=== PATIENT | male | born 1960 | race Caucasian/White ===

== ENCOUNTER 2019-02-28 07:23 | Emergency (ER) | payer OTHER ==
[~2019-02-28] VITALS: Ht 177.8 cm; Wt 108.0 kg
[2019-02-28] MEDS ORDERED: ONDANSETRON 4 MG (ZOFRAN) ORAL DISSOLVE TAB PO STA (07:29)
[2019-02-28] MEDS ORDERED: MECLIZINE 25 MG (ANTIVERT) TAB PO ONE (07:30)
--- OUTSIDE RECORDS SUMMARY | 2019-02-28 07:32 | XMS REPORT | Continuity of Care Document ---
Author Organization Unknown Address Unknown Phone Unavailable Allergies There is no data. Medications There is no data. Problems There is no data. Procedures There is no data. Results Test Result Range MICROALBUMIN/CREATININE RATIO, URINE - 01/17/19 08:48 CREATININE, RANDOM URINE 154 mg/dL 20-320 MICROALBUMIN 3.9 mg/dL See Note: MICROALBUMIN/CREATININE RATIO, RANDOM URINE 25 mcg/mg creat <30 CMP - 01/17/19 08:48 GLUCOSE 156 mg/dL 65-99 UREA NITROGEN (BUN) 17 mg/dL 7-25 CREATININE 1.13 mg/dL 0.70-1.33 eGFR NON-AFR. MOLDOVAN 71 mL/min/1.73m2 > OR=60 eGFR 83 mL/min/1.73m2 > OR=60 BUN/CREATININE RATIO NOT APPLICABLE (calc) 6-22 SODIUM 138 mmol/L 135-146 POTASSIUM 4.5 mmol/L 3.5-5.3 CHLORIDE 105 mmol/L 98-110 CARBON DIOXIDE 23 mmol/L 20-32 CALCIUM 9.5 mg/dL 8.6-10.3 PROTEIN, TOTAL 7.0 g/dL 6.1-8.1 ALBUMIN 4.4 g/dL 3.6-5.1 GLOBULIN 2.6 g/dL (calc) 1.9-3.7 ALBUMIN/GLOBULIN RATIO 1.7 (calc) 1.0-2.5 BILIRUBIN, TOTAL 0.5 mg/dL 0.2-1.2 ALKALINE PHOSPHATASE 55 U/L 40-115 AST 28 U/L 10-35 ALT 38 U/L 9-46 CBC - 01/17/19 08:48 WHITE BLOOD CELL COUNT 9.5 Thousand/uL 3.8-10.8 RED BLOOD CELL COUNT 5.51 Million/uL 4.20-5.80 HEMOGLOBIN 15.5 g/dL 13.2-17.1 HEMATOCRIT 46.8 % 38.5-50.0 MCV 84.9 fL 80.0-100.0 MCH 28.1 pg 27.0-33.0 MCHC 33.1 g/dL 32.0-36.0 RDW 13.3 % 11.0-15.0 PLATELET COUNT 341 Thousand/uL 140-400 MPV 9.8 fL 7.5-12.5 ABSOLUTE NEUTROPHILS 5881 cells/uL 3787-5503 ABSOLUTE LYMPHOCYTES 2318 cells/uL 850-3900 ABSOLUTE MONOCYTES 836 cells/uL 200-950 ABSOLUTE EOSINOPHILS 428 cells/uL 15-500 ABSOLUTE BASOPHILS 38 cells/uL 0-200 NEUTROPHILS 61.9 % NRG LYMPHOCYTES 24.4 % NRG MONOCYTES 8.8 % NRG EOSINOPHILS 4.5 % NRG BASOPHILS 0.4 % NRG Encounters ACCT No. Visit Date/Time Discharge Status Pt. Type Provider Facility Loc./Unit Complaint [id number] 01/17/2019 08:20:00 01/17/2019 23:59:59 [facility] Outpatient SADIE SUAREZ [facility] [id number] 01/17/2019 08:20:00 Document Registration
[2019-02-28] MEDS ORDERED: LORazepam INJ 2 MG/ML (ATIVAN) VIAL ONE (07:35)
[2019-02-28 07:45] VITALS: BP 137/79
[2019-02-28] MEDS ORDERED: LORazepam INJ 2 MG/ML (ATIVAN) VIAL IVP ONE (07:45)
[2019-02-28 07:50] LABS: EOSINOPHILS % (AUTO) 3 % (0-10); HEMATOCRIT 47 % (40-54); HEMOGLOBIN 15.2 G/DL (13.3-17.7); LYMPHOCYTES % (AUTO) 33 % (12-44); MEAN CORPUSCULAR HEMOGLOBIN 28 PG (25-34); MEAN CORPUSCULAR HGB CONC 32 G/DL (32-36); MEAN CORPUSCULAR VOLUME 88 FL (80-99); MONOCYTES % (AUTO) 9 % (0-12); NEUTROPHILS % (AUTO) 54 % (42-75); PLATELET COUNT 313 10^3/uL (130-400); RED CELL DISTRIBUTION WIDTH 13.4 % (10.0-14.5); WHITE BLOOD COUNT 11.2 10^3/uL (4.3-11.0)
[2019-02-28 07:51] LABS: BASOPHILS # (AUTO) 0.1 10^3/uL (0.0-0.1); BASOPHILS % (AUTO) 1 % (0-10); EOSINOPHILS # (AUTO) 0.4 10^3/uL (0.0-0.3); LYMPHOCYTES # (AUTO) 3.7 X 10^3 (1.0-4.0)
[2019-02-28 07:59] LABS: CARBON DIOXIDE 24 MMOL/L (21-32); CHLORIDE 100 MMOL/L (98-107); POTASSIUM 4.2 MMOL/L (3.6-5.0); SODIUM 140 MMOL/L (135-145)
[2019-02-28 08:00] LABS: BUN/CREATININE RATIO 15; CALCIUM 9.5 MG/DL (8.5-10.1); CREATININE SERUM 1.13 MG/DL (0.60-1.30); GFR ESTIMATED > 60; GLUCOSE 261 MG/DL (70-105)
[2019-02-28 08:15] VITALS: BP 119/71
[2019-02-28 08:45] VITALS: BP 120/69
[2019-02-28 10:38] VITALS: BP 111/62
--- NOTE | 2019-02-28 10:55 | ED General ---
General Chief Complaint: Dizziness/Syncope Stated Complaint: DIZZINESS Nursing Triage Note: PT REPORTS HE WENT TO WORK AND SUDDENLY FELT LIKE "AN EARTHQUAKE HIT HIM". HE BECAME DIZZY AND LIGHTHEADED, DIABETIC BUT BS PER EMS WAS 192. HX OF VERTIGO. PT HAS NOT HAD BREAKFAST YET THIS AM. Nursing Sepsis Screen: No Definite Risk Source of Information: Patient Exam Limitations: No Limitations History of Present Illness Date Seen by Provider: Feb 28, 2019 Time Seen by Provider: 08:00 Initial Comments Patient is a 50-year-old male with history of benign positional vertigo who presents with with acute onset dizziness/vertigo at work. 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 Reports room spinning worse with position change and Movement improve with rest. Nausea and vomiting prior to ED arrival. No chest pain palpitations, shortness of breath. Denies headache. No neck pain, loss of hearing, extremity weakness or loss of sensation. No other acute symptoms or complaints. Timing/Duration: 4-6 Hours Severity: Moderate Associated Systoms: Nausea/Vomiting Allergies and Home Medications Allergies Coded Allergies: Penicillins (Verified Allergy, Mild, Rash, 02/28/19) Patient Home Medication List Home Medication List Reviewed: Yes Review of Systems Review of Systems Constitutional: see HPI EENTM: see HPI Respiratory: see HPI Cardiovascular: see HPI Genitourinary: see HPI Musculoskeletal: see HPI Skin: see HPI Hematologic/Lymphatic: See HPI Past Plvinee-Yaxqop-Biflqx Hx Past Med/Social Hx: Reviewed Nursing Past Med/Soc Hx Patient Social History Alcohol Use: Denies Use Recreational Drug Use: No Smoking Status: Never a Smoker 2nd Hand Smoke Exposure: No Recent Foreign Travel: No Contact w/Someone Who Travel: No Recent Infectious Disease Expo: No Recent Hopitalizations: No Physical Abuse: No Sexual Abuse: No Mistreated: No Fear: No Seasonal Allergies Seasonal Allergies: No Past Medical History Surgeries: No Respiratory: No Cardiac: Yes Hypertension Neurological: No Genitourinary: No Gastrointestinal: No Musculoskeletal: No Endocrine: Yes Diabetes, Non-Insulin dep Are Your Blood Sugars Over 250: No HEENT: No Cancer: No Psychosocial: Yes Depression Integumentary: No Physical Exam Vital Signs Vital Signs - First Documented 02/28/19 07:23 Temp 96.7 Pulse 69 Resp 18 B/P (MAP) 148/86 (106) Pulse Ox 98 O2 Delivery Room Air Capillary Refill : Less Than 3 Seconds Height, Weight, BMI Height: 5'10.00" Weight: 238lbs. oz. 107.012918ar; BMI Method:Stated General Appearance: No Apparent Distress, WD/WN Eyes: Bilateral Eye Normal Inspection, Bilateral Eye PERRL, Bilateral Eye EOMI HEENT: PERRL/EOMI, Normal ENT Inspection Neck: Full Range of Motion, Normal Inspection, Supple Respiratory: Chest Non Tender, Lungs Clear Cardiovascular: Irregularly Irregular Gastrointestinal: Normal Bowel Sounds Back: Normal Inspection Extremity: Normal Capillary Refill, Normal Inspection Neurologic/Psychiatric: Alert, Oriented x3 Skin: Normal Color, Warm/Dry Lymphatic: No Adenopathy Focused Exam Sepsis Stage: Ruled Out Progress/Results/Core Measures Suspected Sepsis Recent Fever Within 48 Hours: No Infection Criteria Present: None New/Unexplained Altered Menta: No Sepsis Screen: No Definite Risk SIRS Temperature:98.3 Pulse: 72 Respiratory Rate: 16 Laboratory Tests 02/28/19 07:25: White Blood Count 11.2H Blood Pressure 111 /62 Mean: 78 Laboratory Tests 02/28/19 07:25: Creatinine 1.13, Platelet Count 313 Results/Orders Lab Results Laboratory Tests Test 02/28/19 07:25 02/28/19 07:30 Range/Units White Blood Count 11.2 H 4.3-11.0 10^3/uL Red Blood Count 5.39 4.35-5.85 10^6/uL Hemoglobin 15.2 13.3-17.7 G/DL Hematocrit 47 40-54 % Mean Corpuscular Volume 88 80-99 FL Mean Corpuscular Hemoglobin 28 25-34 PG Mean Corpuscular Hemoglobin Concent 32 32-36 G/DL Red Cell Distribution Width 13.4 10.0-14.5 % Platelet Count 313 130-400 10^3/uL Mean Platelet Volume 10.0 7.4-10.4 FL Neutrophils (%) (Auto) 54 42-75 % Lymphocytes (%) (Auto) 33 12-44 % Monocytes (%) (Auto) 9 0-12 % Eosinophils (%) (Auto) 3 0-10 % Basophils (%) (Auto) 1 0-10 % Neutrophils # (Auto) 6.0 1.8-7.8 X 10^3 Lymphocytes # (Auto) 3.7 1.0-4.0 X 10^3 Monocytes # (Auto) 1.0 0.0-1.0 X 10^3 Eosinophils # (Auto) 0.4 H 0.0-0.3 10^3/uL Basophils # (Auto) 0.1 0.0-0.1 10^3/uL Sodium Level 140 135-145 MMOL/L Potassium Level 4.2 3.6-5.0 MMOL/L Chloride Level 100 98-107 MMOL/L Carbon Dioxide Level 24 21-32 MMOL/L Anion Gap 16 H 5-14 MMOL/L Blood Urea Nitrogen 17 7-18 MG/DL Creatinine 1.13 0.60-1.30 MG/DL Estimat Glomerular Filtration Rate > 60 BUN/Creatinine Ratio 15 Glucose Level 261 H 70-105 MG/DL Calcium Level 9.5 8.5-10.1 MG/DL Glucometer 219 H 70-110 MG/DL My Orders Orders - GONZALES HERNANDEZ DO Ondansetron Oral Dissolve Tab (Zofran (02/28/19 07:29) Meclizine Tablet (Antivert Tablet) (02/28/19 07:30) Ekg Tracing (02/28/19 07:29) Accucheck Stat ONCE (02/28/19 07:29) Cbc With Automated Diff (02/28/19 07:37) Basic Metabolic Panel (02/28/19 07:37) Lorazepam Injection (Ativan Injection) (02/28/19 07:45) Lorazepam Injection (Ativan Injection) (02/28/19 07:35) Medications Given in ED Current Medications Medications Dose Ordered Sig/Justo Route Start Time Stop Time Status Last Admin Dose Admin Lorazepam 1 mg ONCE ONCE IVP 02/28/19 07:45 02/28/19 07:46 DC 02/28/19 07:45 1 MG Meclizine HCl 50 mg ONCE ONCE PO 02/28/19 07:30 02/28/19 07:33 DC 02/28/19 07:43 50 MG Vital Signs/I&O 02/28/19 02/28/19 02/28/19 02/28/19 07:23 07:45 08:15 08:45 Temp 96.7 Pulse 69 82 76 80 Resp 18 18 16 18 B/P (MAP) 148/86 (106) 137/79 (98) 119/71 (87) 120/69 (86) Pulse Ox 98 99 98 99 O2 Delivery Room Air 02/28/19 10:38 Temp 98.3 Pulse 72 Resp 16 B/P (MAP) 111/62 (78) Pulse Ox 99 Capillary Refill : Less Than 3 Seconds Blood Pressure Mean: 78 Point of Care Testing Finger Stick Blood Glucose: 219 Blood Glucose Action Taken: NONE Departure Communication (Admissions) Patient's vertigo/symptoms resolved with treatment. Lab works, EKG reviewed and unremarkable. Patient requesting discharge home. We'll continue supportive treatment with PCP follow-up. Return partial. Impression Primary Impression: Positional vertigo Disposition: HOME, SELF-CARE Condition: Stable/Unchanged Departure-Patient Inst. Patient Instructions: Vertigo (a Type of Dizziness) (DC) Add. Discharge Instructions: Please take Zofran for nausea, meclizine dizziness and Ativan as needed for additional relief. Did not drive or perform any potentially dangerous activities while taking medications or symptomatic. Follow-up with your PCP for reevaluation if symptoms persist. All discharge instructions reviewed with patient and/or family. Voiced understanding. Scripts Ondansetron HCl (Zofran) 4 Mg Tab 4 MG PO Q4H, #14 TAB Prov: GONZALES HERNANDEZ DO 02/28/19 Lorazepam (Ativan) 1 Mg Tablet 1 MG SL Q6H PRN for VERTIGO for 3 Days, #10 TAB Prov: GONZALES HERNANDEZ DO 02/28/19 Meclizine HCl (Meclizine HCl) 25 Mg Tab.chew 50 MG PO Q8H, #30 TAB Prov: GONZALES HERNANDEZ DO 02/28/19 GONZALES HERNANDEZ DO Feb 28, 2019 10:55
[2019-02-28] MEDS ORDERED: ONDN4T PO (10:58)
[2019-02-28] MEDS ORDERED: LORA-405 SL (10:58)
[2019-02-28] MEDS ORDERED: MECL-124 PO (10:58)
== END 2019-02-28 11:04 | disposition home or self-care (01) ==
LOC: ER FS 07:25
DX: H81.10 Benign paroxysmal vertigo, unspecified ear (principal); I10 Essential (primary) hypertension; E11.9 Type 2 diabetes mellitus without complications; F32.9 Major depressive disorder, single episode, unspecified; Z88.0 Allergy status to penicillin
CPT/HCPCS: 36415; 80048; 82962; 85025; 93005; 96374